=== PATIENT | male | born 1970 | race Two or more races ===

== ENCOUNTER 2022-04-06 00:08 | Inpatient (IN) | payer OTHER ==
[~2022-04-06] VITALS: Ht 172.7 cm; Wt 70.8 kg
[2022-04-06] MEDS ORDERED: ASPIRIN 325MG EC TABLET PO ONE (01:00)
[2022-04-06 01:18] LABS: CHLORIDE 98 mEq/L (98-107)
[2022-04-06 01:19] LABS: BG BASE EXCESS -0.2 mmol/L (-2.0-2.0); BG CARBOXYHEMOGLOBIN 2.6 % (0.5-1.5); BG DEOXYHEMOGLOBIN 6.5 % (0.0-5.0); BG FRACTION INSPIRED OXYGEN 21; BG HCO3 ACT 24.6 mmol/L (22.0-26.0); BG METHEMOGLOBIN 0.4 % (0.0-1.5); BG OXYGEN SATURATION 93.3 % (92.0-98.5); BG OXYHEMOGLOBIN 90.5 % (94.0-97.0); BG PCO2 40.9 mmHg (35.0-45.0); BG PH 7.397 (7.350-7.450); BG PO2 70.8 mmHg (75.0-100.0); BG SAMPLE SITE RIGHT BRACHIAL; BG TOTAL HEMOGLOBIN 13.8 g/dL (12.0-18.0); BG VENT MODE ROOM AIR
[2022-04-06 01:19] LABS: BASOPHILS % 0.8 % (0.0-2.0); EOSINOPHILS % 1.8 % (0.0-5.0); HEMATOCRIT. 39.4 % (42.0-52.0); HEMOGLOBIN. 13.5 g/dL (14.0-18.0); LYMPHOCYTES % 47.7 % (20.0-50.0); MEAN PLATELET VOLUME 8.2 fl (7.4-10.4); MONOCYTES % 7.3 % (2.0-8.0); NEUTROPHILS % 42.4 % (40.0-76.0); PLATELET 202 x1000/uL (130-400); RED CELL DISTRIBUTION WIDTH 13.8 % (11.6-14.6)
[2022-04-06 01:26] LABS: ETHANOL BLOOD 288 mg/dL
[2022-04-06 01:37] LABS: PROTHROMBIN TIME 10.6 sec (9.6-11.0)
[2022-04-06 01:51] LABS: *AMPHETAMINES SCREEN URINE NEGATIVE (NEGATIVE); *BARBITURATES SCREEN URINE NEGATIVE (NEGATIVE); *BENZODIAZEPINES SCREEN URINE NEGATIVE (NEGATIVE); *COCAINE SCREEN URINE NEGATIVE (NEGATIVE); CANNABINOID URINE SCREEN NEGATIVE (NEGATIVE); METHADONE URINE SCREEN NEGATIVE (NEGATIVE); OPIATES URINE SCREEN NEGATIVE (NEGATIVE); PHENCYCLIDINE URINE SCREEN NEGATIVE (NEGATIVE)
[2022-04-06 01:58] LABS: CLARITY URINE CLEAR (CLEAR); COLOR URINE YELLOW (YELLOW)
[2022-04-06 01:59] LABS: LEUKOCYTE ESTERASE URINE NEGATIVE (NEGATIVE); NITRITE URINE NEGATIVE (NEGATIVE); OCCULT BLOOD URINE NEGATIVE (NEGATIVE); PROTEIN URINE NEGATIVE (NEGATIVE); SPECIFIC GRAVITY URINE 1.032 (1.005-1.030); UROBILINOGEN URINE 0.2 E.U./dL (0.2-1.0)
[2022-04-06 02:00] LABS: KETONES URINE TRACE (NEGATIVE)
[2022-04-06] MEDS ORDERED: INSULIN REGULAR (HUMULIN R) 300UNITS/3ML VIAL SUBCUT NR (02:30)
[2022-04-06] MEDS ORDERED: IOHEXOL-350 100 ML BOTTLE ONE (05:33)
[2022-04-06 13:35] VITALS: BP 155/70
[2022-04-06 14:00] VITALS: BP 151/75
[2022-04-06] MEDS ORDERED: POTASSIUM CHLORIDE 20MEQ TABLET SR PO NR (14:30)
[2022-04-06] MEDS ORDERED: DEXTROSE 50% WATER 50ML SYRINGE IV PRN (14:30)
[2022-04-06] MEDS ORDERED: LORAZEPAM 1MG TABLET PO PRN (14:30)
[2022-04-06] MEDS ORDERED: ONDANSETRON HCL 4MG/2ML INJ IV PRN (14:30)
[2022-04-06] MEDS ORDERED: GABA-532 PO (15:04)
[2022-04-06] MEDS ORDERED: LISI20TA31 PO (15:04)
[2022-04-06] MEDS ORDERED: METF-874 PO (15:04)
[2022-04-06] MEDS ORDERED: ATOR20TA PO (15:04)
[2022-04-06 16:00] VITALS: BP 151/87
[2022-04-06] MEDS: BLOOD SUGAR DIAGNOSTIC STRIP TEST SCH ×2 (17:20→21:29)
[2022-04-06] MEDS: ENOXAPARIN 40MG/0.4ML SYR SUBCUT SCH (17:30)
[2022-04-06] MEDS: INSULIN LISPRO 100 UNITS/ML SUBCUT SCH ×2 (17:31→21:39)
[2022-04-06 20:00] VITALS: BP 154/88
[2022-04-06] MEDS: ATORVASTATIN CALCIUM 40MG TABLET PO SCH (21:29)
[2022-04-07] VITALS: BP 157/84
[2022-04-07 04:00] VITALS: BP 98/48
[2022-04-07] MEDS: INSULIN LISPRO 100 UNITS/ML SUBCUT SCH ×4 (05:26→21:00)
[2022-04-07] MEDS: BLOOD SUGAR DIAGNOSTIC STRIP TEST SCH ×4 (05:26→21:00)
[2022-04-07 08:00] VITALS: BP 152/62
[2022-04-07] MEDS: CLOPIDOGREL 75MG TABLET PO SCH (09:35)
[2022-04-07] MEDS: ENOXAPARIN 40MG/0.4ML SYR SUBCUT SCH (09:36)
[2022-04-07] MEDS: THIAMINE HCL 100MG TABLET PO SCH (09:36)
[2022-04-07] MEDS: INSULIN GLARGINE 100 UNITS/ML SUBCUT SCH ×2 (11:35→22:16)
[2022-04-07 12:00] VITALS: BP 128/100
[2022-04-07] MEDS: CHLORDIAZEPOXIDE 25MG CAPSULE PO SCH ×2 (15:44→22:19)
[2022-04-07 16:00] VITALS: BP 130/98
[2022-04-07 20:00] VITALS: BP 120/81
[2022-04-07] MEDS: ATORVASTATIN CALCIUM 40MG TABLET PO SCH (22:17)
[2022-04-08] VITALS: BP 125/81
[2022-04-08 04:00] VITALS: BP 122/78
[2022-04-08] MEDS: CHLORDIAZEPOXIDE 25MG CAPSULE PO SCH ×3 (05:45→20:46)
[2022-04-08] MEDS: BLOOD SUGAR DIAGNOSTIC STRIP TEST SCH ×4 (05:45→20:48)
[2022-04-08 08:00] VITALS: BP 156/93
[2022-04-08] MEDS: INSULIN LISPRO 100 UNITS/ML SUBCUT SCH ×4 (08:38→20:48)
[2022-04-08] MEDS: CLOPIDOGREL 75MG TABLET PO SCH (08:40)
[2022-04-08] MEDS: THIAMINE HCL 100MG TABLET PO SCH (08:40)
[2022-04-08] MEDS: ENOXAPARIN 40MG/0.4ML SYR SUBCUT SCH (08:40)
[2022-04-08 12:00] VITALS: BP 124/85
[2022-04-08] MEDS: INSULIN GLARGINE 100 UNITS/ML SUBCUT SCH ×3 (12:09→22:00)
[2022-04-08] MEDS ORDERED: IOHEXOL-350 100 ML BOTTLE ONE (14:02)
[2022-04-08 16:00] VITALS: BP 111/58
[2022-04-08 16:43] LABS: BASOPHILS % 0.6 % (0.0-2.0); EOSINOPHILS % 4.5 % (0.0-5.0); HEMATOCRIT. 40.6 % (42.0-52.0); HEMOGLOBIN. 14.6 g/dL (14.0-18.0); LYMPHOCYTES % 21.5 % (20.0-50.0); MEAN CORPUSCULAR HEMOGLOBIN 33.4 pg (28.0-32.0); MEAN CORPUSCULAR VOLUME 93.3 fL (80.0-94.0); MEAN PLATELET VOLUME 8.1 fl (7.4-10.4); MONOCYTES % 7.9 % (2.0-8.0); NEUTROPHILS % 65.5 % (40.0-76.0); PLATELET 197 x1000/uL (130-400); RED BLOOD CELL COUNT 4.35 mill/uL (4.7-6.1); RED CELL DISTRIBUTION WIDTH 13.5 % (11.6-14.6)
[2022-04-08 17:06] LABS: CHLORIDE 98 mEq/L (98-107)
[2022-04-08 20:00] VITALS: BP 114/83
[2022-04-08] MEDS: ATORVASTATIN CALCIUM 40MG TABLET PO SCH (20:46)
[2022-04-09 04:00] VITALS: BP 129/76
[2022-04-09] MEDS: CHLORDIAZEPOXIDE 25MG CAPSULE PO SCH ×2 (05:54→14:05)
[2022-04-09] MEDS: INSULIN LISPRO 100 UNITS/ML SUBCUT SCH ×2 (05:55→14:05)
[2022-04-09] MEDS: BLOOD SUGAR DIAGNOSTIC STRIP TEST SCH ×2 (06:01→12:40)
[2022-04-09 07:25] LABS: PHOSPHORUS 4.2 mg/dL (2.5-4.9)
[2022-04-09] MEDS: CLOPIDOGREL 75MG TABLET PO SCH (10:07)
[2022-04-09] MEDS: ENOXAPARIN 40MG/0.4ML SYR SUBCUT SCH (10:07)
[2022-04-09] MEDS: THIAMINE HCL 100MG TABLET PO SCH (10:08)
[2022-04-09] MEDS: INSULIN GLARGINE 100 UNITS/ML SUBCUT SCH (10:20)
[2022-04-09 12:00] VITALS: BP 129/64
[2022-04-09] MEDS ORDERED: INSU100I28 SQ (12:52)
[2022-04-09] MEDS ORDERED: THIA100T72 PO (12:52)
[2022-04-09] MEDS ORDERED: CLOP75TA15 PO (12:52)
[2022-04-09] MEDS ORDERED: L25 MT (13:11)
[2022-04-09 14:09] VITALS: BP 119/89
== END 2022-04-09 15:35 | disposition home or self-care (01) | DRG 897 ==
LOC: ER 00:08 → EDBEDREQ 09:13 → EDBEDREQSVC 09:13 → 7WST 11:30 → ENRESERV 11:32
PROVIDERS: ADMIT Internal Medicine; ATTEND Internal Medicine
DX: F10.229 Alcohol dependence with intoxication, unspecified (principal); G45.9 Transient cerebral ischemic attack, unspecified; E87.1 Hypo-osmolality and hyponatremia; I69.354 Hemiplegia and hemiparesis following cerebral infarction affecting left non-dominant side; R47.01 Aphasia; F10.239 Alcohol dependence with withdrawal, unspecified; E87.6 Hypokalemia; R29.711 NIHSS score 11; E10.65 Type 1 diabetes mellitus with hyperglycemia; I10 Essential (primary) hypertension; G51.0 Bell's palsy; Z83.3 Family history of diabetes mellitus; Z82.49 Family history of ischemic heart disease and other diseases of the circulatory system; Z88.8 Allergy status to other drugs, medicaments and biological substances; Z79.4 Long term (current) use of insulin; Z79.02 Long term (current) use of antithrombotics/antiplatelets
CPT/HCPCS: 36415; 36600; 70496; 70498; 70551; 71045; 80048; 80053; 80061; 80305; 80320; 81003; 82375; 82805; 82962; 83036; 83605; 83735; 83880; 84100; 84484; 85025; 93005; 99291; J1650; J1815; Q9967; G0480